=== PATIENT | male | born 1965 | race Caucasian/White ===

== ENCOUNTER → 2019-07-09 07:53 | Outpatient (BNVA) | payer SELFPAY | PROVIDERS: PCP Nurse Practitioner Family; Visit Provider Anesthesiology | DX: G89.29 Other chronic pain (principal); M54.16 Radiculopathy, lumbar region; M54.2 Cervicalgia; M19.90 Unspecified osteoarthritis, unspecified site; Z87.39 Personal history of other diseases of the musculoskeletal system and connective tissue; Z79.891 Long term (current) use of opiate analgesic | CPT/HCPCS: 99214 ==

== ENCOUNTER → 2019-09-12 14:06 | Outpatient (BNVA) | payer SELFPAY | PROVIDERS: PCP Nurse Practitioner Family; Visit Provider Anesthesiology | DX: G89.29 Other chronic pain (principal); M54.16 Radiculopathy, lumbar region; M17.0 Bilateral primary osteoarthritis of knee; M54.2 Cervicalgia; Z87.39 Personal history of other diseases of the musculoskeletal system and connective tissue; Z79.891 Long term (current) use of opiate analgesic | CPT/HCPCS: 99214 ==

== ENCOUNTER → 2019-10-29 09:56 | Outpatient (BNVA) | payer SELFPAY | PROVIDERS: PCP Nurse Practitioner Family; Visit Provider Nurse Practitioner | DX: G89.29 Other chronic pain (principal); M54.16 Radiculopathy, lumbar region; M54.9 Dorsalgia, unspecified; M54.2 Cervicalgia; Z79.891 Long term (current) use of opiate analgesic | CPT/HCPCS: 99213 ==

== ENCOUNTER → 2020-01-14 09:47 | Outpatient (BNVA) | payer SELFPAY | PROVIDERS: Absent Provider Anesthesiology; PCP Nurse Practitioner Family; Visit Provider Anesthesiology | DX: G89.29 Other chronic pain (principal); M54.42 Lumbago with sciatica, left side; M54.16 Radiculopathy, lumbar region; M54.9 Dorsalgia, unspecified; M17.0 Bilateral primary osteoarthritis of knee; M54.2 Cervicalgia; Z87.39 Personal history of other diseases of the musculoskeletal system and connective tissue; Z79.891 Long term (current) use of opiate analgesic | CPT/HCPCS: 99214 ==

== ENCOUNTER → 2020-03-17 12:56 | Outpatient (BNVA) | payer SELFPAY | PROVIDERS: PCP Nurse Practitioner Family; Visit Provider Nurse Practitioner | DX: G89.29 Other chronic pain (principal); M54.42 Lumbago with sciatica, left side; M54.16 Radiculopathy, lumbar region; M54.2 Cervicalgia; M54.9 Dorsalgia, unspecified; M19.90 Unspecified osteoarthritis, unspecified site; Z79.891 Long term (current) use of opiate analgesic | CPT/HCPCS: 99213 ==

== ENCOUNTER → 2020-05-12 13:58 | Outpatient (BNVA) | payer SELFPAY | PROVIDERS: PCP Nurse Practitioner Family; Visit Provider Anesthesiology | DX: G89.29 Other chronic pain (principal); M54.16 Radiculopathy, lumbar region; M17.0 Bilateral primary osteoarthritis of knee; M54.2 Cervicalgia; M54.9 Dorsalgia, unspecified; Z87.39 Personal history of other diseases of the musculoskeletal system and connective tissue; Z79.891 Long term (current) use of opiate analgesic | CPT/HCPCS: 99214 ==

== ENCOUNTER → 2020-07-17 13:07 | Outpatient (BNVA) | payer SELFPAY | PROVIDERS: PCP Nurse Practitioner Family; Visit Provider Anesthesiology | DX: G89.29 Other chronic pain (principal); M25.561 Pain in right knee; M54.16 Radiculopathy, lumbar region; M54.2 Cervicalgia; M54.9 Dorsalgia, unspecified; M17.0 Bilateral primary osteoarthritis of knee; Z87.39 Personal history of other diseases of the musculoskeletal system and connective tissue; Z79.891 Long term (current) use of opiate analgesic | CPT/HCPCS: 99214 ==

== ENCOUNTER → 2020-09-15 08:22 | Outpatient (BNVA) | payer SELFPAY | PROVIDERS: PCP Nurse Practitioner Family; Visit Provider Anesthesiology | DX: G89.29 Other chronic pain (principal); M54.2 Cervicalgia; M54.9 Dorsalgia, unspecified; M54.16 Radiculopathy, lumbar region; M17.0 Bilateral primary osteoarthritis of knee; M19.90 Unspecified osteoarthritis, unspecified site; Z87.39 Personal history of other diseases of the musculoskeletal system and connective tissue; Z79.891 Long term (current) use of opiate analgesic | CPT/HCPCS: 99214 ==

== ENCOUNTER → 2020-11-10 13:44 | Outpatient (BNVA) | payer SELFPAY | PROVIDERS: PCP Nurse Practitioner Family; Visit Provider Nurse Practitioner | DX: G89.29 Other chronic pain (principal); M54.16 Radiculopathy, lumbar region; M54.9 Dorsalgia, unspecified; M54.2 Cervicalgia; M19.90 Unspecified osteoarthritis, unspecified site; M17.0 Bilateral primary osteoarthritis of knee; Z79.891 Long term (current) use of opiate analgesic; Z87.39 Personal history of other diseases of the musculoskeletal system and connective tissue | CPT/HCPCS: 99212; 99213 ==

== ENCOUNTER → 2021-01-20 12:42 | Outpatient (BNVA) | payer SELFPAY | PROVIDERS: PCP Nurse Practitioner Family; Visit Provider Anesthesiology | DX: G89.29 Other chronic pain (principal); M54.2 Cervicalgia; M54.42 Lumbago with sciatica, left side; M54.16 Radiculopathy, lumbar region; Z87.39 Personal history of other diseases of the musculoskeletal system and connective tissue; Z79.891 Long term (current) use of opiate analgesic | CPT/HCPCS: 99214 ==

== ENCOUNTER → 2021-03-17 13:13 | Outpatient (BNVA) | payer SELFPAY | PROVIDERS: PCP Nurse Practitioner Family; Visit Provider Anesthesiology | DX: G89.29 Other chronic pain (principal); M54.16 Radiculopathy, lumbar region; M54.2 Cervicalgia; Z87.39 Personal history of other diseases of the musculoskeletal system and connective tissue; Z79.891 Long term (current) use of opiate analgesic | CPT/HCPCS: 99214 ==

== ENCOUNTER → 2021-05-13 13:44 | Outpatient (BNVA) | payer SELFPAY | PROVIDERS: PCP Nurse Practitioner Family; Visit Provider Anesthesiology | DX: G89.29 Other chronic pain (principal); M54.2 Cervicalgia; M54.9 Dorsalgia, unspecified; M54.16 Radiculopathy, lumbar region; M19.90 Unspecified osteoarthritis, unspecified site; Z87.39 Personal history of other diseases of the musculoskeletal system and connective tissue; Z79.891 Long term (current) use of opiate analgesic; Z87.891 Personal history of nicotine dependence; R03.0 Elevated blood-pressure reading, without diagnosis of hypertension | CPT/HCPCS: 99214 ==

== ENCOUNTER → 2021-07-19 16:59 | Outpatient (BNVA) | payer SELFPAY | PROVIDERS: PCP Nurse Practitioner Family; Visit Provider Nurse Practitioner Family | DX: I10 Essential (primary) hypertension (principal); E78.2 Mixed hyperlipidemia; R07.9 Chest pain, unspecified; Z79.899 Other long term (current) drug therapy; Z12.5 Encounter for screening for malignant neoplasm of prostate; E55.9 Vitamin D deficiency, unspecified; M54.2 Cervicalgia; G89.29 Other chronic pain; M54.16 Radiculopathy, lumbar region; M54.9 Dorsalgia, unspecified | CPT/HCPCS: 80053; 80061; 81003; 82306; 83036; 84443; 85025; G0103 ==

== ENCOUNTER → 2022-11-02 15:40 | Outpatient (BNVA) | payer OTHER, SELFPAY | PROVIDERS: PCP Family Medicine; Visit Provider Family Medicine | DX: M17.12 Unilateral primary osteoarthritis, left knee (principal); M79.673 Pain in unspecified foot; M72.2 Plantar fascial fibromatosis; M25.562 Pain in left knee; I10 Essential (primary) hypertension | CPT/HCPCS: 73562 ==

== ENCOUNTER 2022-11-14 06:31 | Outpatient (CLI) | payer OTHER, SELFPAY ==
--- NOTE | 2022-11-14 07:00 | CT_ITS ---
WS: [id number] CT LEFT KNEE, NONCONTRAST. HISTORY: M25.562 - Pain in left knee Technique: All CT scans at [facility] use at least one of these dose optimization techniques: automated exposure control; mA and/or kV adjustment per patient size (includes targeted exams where dose is matched to clinical indication); or iterative reconstruction. DLP: 346.04 mGy.cm COMPARISON: Radiograph 11/02/2022 No acute fractures or dislocations. Tricompartment mild to moderate osteoarthritis most significant i n the medial compartment. Marginal osteophytes from the tibial plateau and femoral condyles. Increase d sclerotic changes involving the medial femoral condyle and tibial plateau. Subchondral cyst in the tibial plateau measures 2.6 x 2.8 cm. No acute fractures. Moderate suprapatellar effusion. CT/CT knee LT wo con* [id number] IMPRESSION: 1. No acute LEFT knee fracture. 2. Moderate suprapatellar effusion. 3. Mild to moderate tricompartment osteoarthritis, most significant in the med ial compartment.
== END 2022-11-14 06:32 | disposition home or self-care (01) ==
LOC: RAD 06:35
PROVIDERS: PCP Family Medicine; Visit Provider Family Medicine
DX: M17.12 Unilateral primary osteoarthritis, left knee (principal); M25.562 Pain in left knee; M25.462 Effusion, left knee
CPT/HCPCS: 73562; 73700

== ENCOUNTER → 2022-11-16 13:49 | Outpatient (BNVA) | payer OTHER, SELFPAY | PROVIDERS: PCP Family Medicine; Visit Provider Nurse Practitioner | DX: M79.673 Pain in unspecified foot (principal) | CPT/HCPCS: 73630 ==

== ENCOUNTER 2022-12-09 06:00 | Outpatient (CLI) | payer OTHER, SELFPAY | END 2022-12-09 06:01 | LOC: SPT 12-12 12:26 | PROVIDERS: PCP Family Medicine; Visit Provider Student in an Organized Health Care Education/Training Program | DX: Z46.89 Encounter for fitting and adjustment of other specified devices (principal); M17.12 Unilateral primary osteoarthritis, left knee | CPT/HCPCS: 97760; L1851 ==

== ENCOUNTER → 2022-12-09 06:53 | Outpatient (BNVA) | payer OTHER, SELFPAY | PROVIDERS: PCP Family Medicine; Visit Provider Student in an Organized Health Care Education/Training Program | DX: M17.12 Unilateral primary osteoarthritis, left knee | CPT/HCPCS: 73560; 73565 ==

== ENCOUNTER 2023-09-24 22:15 | Emergency (ER) | payer OTHER, SELFPAY ==
[2023-09-24 22:25] VITALS: BP 161/79; PULSE 68; RESP 18; TEMP 37.4; O2SAT 99; BMI 32.8
[2023-09-24 23:09] VITALS: BP 165/103; PULSE 69; RESP 22; O2SAT 94
--- NOTE | 2023-09-24 23:30 | W.ED.EXTPRO ---
HPI - Extremity Problem General: Chief complaint: Extremity Injury, Lower Stated complaint: Hip Pain Time Seen by Provider: 09/24/23 23:00 History of Present Illness: 58-year-old male patient comes in today with right hip pain. Patient has had increased pain and discomfort after doing some work at the [employer]. Patient appears nontoxic. Patient appears in mild to moderate pain. Patient is on chronic pain medication for back and knee pain. 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 Social History Smoking and tobacco/nicotine status: former use of tobacco/nicotine Second hand smoke exposure: No Alcohol intake: never Substance/Drug Use: never Physical Exam Const: COMMON NORMALS: alert HENMT: COMMON NORMALS: normocephalic HEAD & SCALP: normocephalic Neck/C-Spine: GENERAL: Yes normal visual inspection Resp: COMMON NORMALS: normal respiratory effort Cardio: COMMON NORMALS: regular rate RATE: regular rate : COMMON NORMALS: Yes no CVA tenderness BLADDER/KIDNEY EXAM: Yes no CVA tenderness Back/Pelvis: COMMON NORMALS: no CVA tenderness and thoracic and lumbar spine normal to inspection Extremity: RIGHT LOWER EXTREMITY: Yes hip joint (Lateral hip joint pain) Neuro: SENSORIUM/ORIENTATION: Yes alert Skin: COMMON NORMALS: turgor normal GENERAL SKIN EXAM: turgor normal Course Vital Signs: Vital signs: Vital Signs Temperature 99.3 F 09/24/23 22:25 Pulse Rate 72 09/25/23 00:00 Respiratory Rate 20 H 09/25/23 00:00 Blood Pressure 162/93 09/25/23 00:00 Pulse Oximetry 94 09/25/23 00:00 Oxygen Delivery Me thod Room Air 09/24/23 22:25 MDM - Extremity (Nontraumatic) Medical Decision Making 58-year-old male patient comes in with lateral right hip pain. On exam patient has tenderness to palpation of the lateral hip. Patient denies any pain to the inguinal hip. Differential diagnosis includes but not limited to piriformis syndrome, bursitis, arthritis, muscle strain. X-ray of the hip noted some calcium buildup along the gluteal tendon. Also likely was suggestive of chronic tendinitis. Patient probably has a flare of his chronic tendinitis. Discussed recommendations for follow-up with orthopedics for further evaluation and treatment. Will place patient on prednisone 40 mg daily to help with pain and inflammation. Patient has not a good candidate for NSAIDs due to prior cardiac disease. Patient can use his routine medicine as needed for the control of his pain. Lab Data Radiology Impressions Hip/Pelvis X-Ray 09/24/23 23:32 IMPRESSION: No acute fracture or dislocation. Coarse calcifications at the greater trochanter suggestive of underlying gluteal tendinopathy. All radiology interpretation(s) finalized by discharge Discharge Plan Discharge Patient Disposition: Home Clinical Impression: Tendonitis of right hip Condition: Stable Prescriptions: New prednisone 20 mg tablet 20 mg PO BID 7 Days Qty: 14 0RF No Action nitroglycerin 0.4 mg tablet, sublingual 0.4 mg SUBLINGUAL Q5M PRN (Reason: chest pain) Qty: 30 5RF aspirin 81 mg tablet,delayed release (DR/EC) 81 mg PO ONCE morphine [MS Contin] 15 mg tablet extended release 15 mg PO Q8H 30 Days Qty: 90 0RF Rx Instructions: Fill on or after 07/20/21 morphine 15 mg tablet extended release 15 mg PO Q8H 30 Days Qty: 90 0RF Rx Instructions: fill on or after 08/19/21 hydrocodone-acetaminophen 10-325 mg tablet 1 tab PO .q4hrs PRN (Reason: pain) 30 Days Qty: 180 0RF Rx Instructions: must be seen for further refills albuterol sulfate 90 mcg/actuation HFA aerosol inhaler 1 inh inhalation QID PRN (Reason: shortness of breath or wheezing) Qty: 8.5 0RF (DME) medial special service representative brace See Rx Instructions .Route .MEDSUPPLY Qty: 1 0RF Rx Instructions: As directed Durolane 60 mg/3 mL syringe 60 mg intra-articular ONCE Qty: 3 0RF Coricidin HBP Cold and Flu 2-325 mg tablet 1 tab PO Q6H PRN (Reason: cold symptoms) Qty: 60 1RF amlodipine 10 mg tablet 10 mg PO DAILY Qty: 90 1RF telmisartan [Micardis] 40 mg tablet 40 mg PO DAILY Qty: 90 1RF clonidine HCl 0.1 mg tablet See Rx Instructions .ROUTE .COMPLEX Qty: 60 0RF Dose Instruction: TAKE 1 TABLET TWICE DAILY NEEDED FOR HYPERTENSIVE EMERGENCY. FOR SYSTOLIC BLOOD PRESSURE>180 OR DIASTOLIC BLOOD PRESSURE>100. HOLD IF HR<60. Rx Instructions: TAKE 1 TABLET TWICE DAILY NEEDED FOR HYPERTENSIVE EMERGENCY. FOR SYSTOLIC BLOOD PRESSURE>180 OR DIASTOLIC BLOOD PRESSURE>100. HOLD IF HR<60. colchicine 0.6 mg tablet See Rx Instructions .ROUTE .COMPLEX Qty: 14 0RF Dose Instruction: TAKE 1 TABLET BY MOUTH DAILY FOR 14 DAYS Rx Instructions: TAKE 1 TABLET BY MOUTH DAILY FOR 14 DAYS betamethasone valerate 0.1 % cream 1 applic TOPICAL BID PRN (Reason: itching) Qty: 45 1RF Discharge Orders: Discharge ED (Routine); Ordered 09/25/23 Ordered By: Mick Baron Discharge Diet: Usual diet Discharge Activity: Increase activity as tolerated Patient Instructions: Tendinitis (ED) Activity Restrictions/Additional Instructions: Activity as tolerated. Use ice or heat to the area for pain. Follow-up with primary care in 1 week for recheck. Follow-up with news specialist for further treatment. Return to ED for new concerns. Coding Level of Care Code ED Sheet [employer] Du[employer] Installer Helper for Chris Ryan
--- NOTE | 2023-09-24 23:32 | XRR_ITS ---
PROCEDURE INFORMATION: Exam: XR Right Hip Exam date and time: 09/24/2023 11:36 PM Age: 58 years old Clinical indication: Right hip; Patient HX: C/O worsening hip pain over last three days. No injury. TECHNIQUE: Imaging protocol: Radiologic exam of the right hip. Views: 1 view hip with pelvis when performed. COMPARISON: No relevant prior studies available. FINDINGS: Bones/joints: No fracture or dislocation. Slight degenerative spurring of the acetabular margin. Clustered coarse calcification of the 1.4 cm of the location of the gluteus minimus footprint. Additional subcentimeter calcification in the greater trochanter laterally. Soft tissues: Unremarkable. XR/XR hip RT 2-3V wo/w pel* [id number] IMPRESSION: No acute fracture or dislocation. Coarse calcifications at the greater trochanter suggestive of underlying gluteal tendinopathy.
[2023-09-24] MEDS: orphenadrine 30 mg/mL Inj 2 mL 60 MG IM (23:35)
[2023-09-24] MEDS: dexamethasone 10 mg/mL INJ IM (23:35)
[2023-09-24 23:42] VITALS: BP 152/68; PULSE 65; RESP 16; O2SAT 95
[2023-09-25] VITALS: BP 162/93; PULSE 72; RESP 20; O2SAT 94
[2023-09-25 00:46] VITALS: BP 150/92; PULSE 65; RESP 14; O2SAT 97
--- NOTE | 2023-09-27 10:20 | PC.SOCIAL ---
Ortho Referral Referral to clinic at this time. Clinic to contact patient with appt date/time.
== END 2023-09-25 00:40 | disposition home or self-care (01) ==
PROVIDERS: Emergency Provider Nurse Practitioner Family
DX: M76.9 Unspecified enthesopathy, lower limb, excluding foot (principal); I10 Essential (primary) hypertension; E78.2 Mixed hyperlipidemia; Z87.891 Personal history of nicotine dependence
CPT/HCPCS: 73502; 96372; 99284; J1100; J2360

== ENCOUNTER → 2023-11-07 13:49 | Outpatient (BNVA) | payer OTHER, SELFPAY | PROVIDERS: Visit Provider Student in an Organized Health Care Education/Training Program | DX: M70.61 Trochanteric bursitis, right hip | CPT/HCPCS: 73522 ==

== ENCOUNTER 2023-11-13 05:38 | Emergency (ER) | payer SELFPAY ==
--- NOTE | 2023-11-13 05:50 | XRR_ITS ---
PROCEDURE INFORMATION: Exam: XR Right Hip Exam date and time: 11/13/2023 6:02 AM Age: 58 years old Clinical indication: Right hip; Patient HX: C/O RT hip pain. No injury. TECHNIQUE: Imaging protocol: Radiologic exam of the right hip. Views: 1 view hip with pelvis when performed. COMPARISON: CR XR hip BI 3-4V wo/w pel [id number] 11/07/2023 2:09 PM FINDINGS: Bones/joints: No fracture or dislocation. Mild articular surface narrowing and spurring.. No acute fracture. Soft tissues: Unremarkable. XR/XR hip RT 2-3V wo/w pel* [id number] IMPRESSION: No acute findings.
[2023-11-13 05:52] VITALS: BP 134/60; PULSE 69; RESP 16; TEMP 36.9; O2SAT 98; BMI 34.4
[2023-11-13] MEDS: dexamethasone 10 mg/mL INJ IM (06:29)
[2023-11-13] MEDS: ketorolac 30 mg/mL INJ 60 MG IM (06:29)
--- NOTE | 2023-11-13 06:29 | ED_ITS ---
HPI - Back Pain/Injury General: Chief Complaint: Back Pain/Injury Stated Complaint: right hip pain Time Seen by Provider: 11/13/23 05:48 History of Present Illness: Associated symptoms: Deny abdominal pain, chills, dysuria, fever(s) or urinary urgency Review of Systems Const: Denies: fever(s) or chills Card: Denies: chest pain Resp: Denies: dyspnea GI: Denies: abdominal pain : Denies: dysuria, urinary frequency or urinary urgency Musc: Denies: neck pain or back pain Skin/Breast: Denies: rash PFSH ED PFSH: Medical History Medication management Anemia Prostate cancer screening Vitamin D deficiency Chest pain Mixed hyperlipidemia Essential hypertension History of degenerative disc disease Osteoarthritis Chronic radicular lumbar pain Encounter for long-term use of opiate analgesic Arthritis of both knees Chronic neck pain Spine pain Surgical History 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 H/O heart artery stent 4x at [facility] [place] 2017 and 2008 Social History Smoking and tobacco/nicotine status: former use of tobacco/nicotine Second hand smoke exposure: No Alcohol intake: never Substance/Drug Use: never Physical Exam Const: COMMON NORMALS: no acute distress GENERAL APPEARANCE: cooperative and comfortable ORIENTATION/CONSCIOUSNESS: Yes awake, Yes oriented to person, Yes oriented to place and Yes oriented to time HENMT: COMMON NORMALS: normocephalic, atraumatic and hearing grossly normal bilaterally HEAD & SCALP: normocephalic and atraumatic Resp: COMMON NORMALS: normal respiratory effort, No retractions, No use of accessory muscles and clear to auscultation bilaterally AUSCULTATION: clear to auscultation bilaterally Cardio: COMMON NORMALS: regular rate, regular rhythm and No murmurs present (Cardio) RATE: regular rate RHYTHM: regular rhythm GI: COMMON NORMALS: Soft to palpation and No hepatosplenomegaly present AUSCULTATION: Yes normoactive bowel sounds PALPATION: Yes Soft to palpation, No Tenderness to palpation present (GI), No Guarding due to palpation present (GI) and Yes No hepatosplenomegaly present Extremity: COMMON NORMALS: normal to inspection, capillary refill normal, no clubbing, cyanosis or edema, no calf tenderness and no pedal edema Neuro: SENSORIUM/ORIENTATION: Yes oriented to person, Yes oriented to place and Yes oriented to time Skin: COMMON NORMALS: no rashes or lesions noted GENERAL SKIN EXAM: no rashes or lesions noted Course Vital Signs: Vital signs: Vital Signs Temperature 98.4 F 11/13/23 05:52 Pulse Rate 69 11/13/23 05:52 Respiratory Rate 16 11/13/23 05:52 Blood Pressure 134/60 11/13/23 05:52 Pulse Oximetry 98 11/13/23 05:52 Oxygen Delivery Me thod Room Air 11/13/23 05:52 MDM - Back Pain/Injury Labs Radiology Impressions Hip/Pelvis X-Ray 11/13/23 05:50 IMPRESSION: No acute findings. Discharge Plan Discharge Condition: Stable Prescriptions: No Action nitroglycerin 0.4 mg tablet, sublingual 0.4 mg SUBLINGUAL Q5M PRN (Reason: chest pain) Qty: 30 5RF aspirin 81 mg tablet,delayed release (DR/EC) 81 mg PO ONCE morphine [MS Contin] 15 mg tablet extended release 15 mg PO Q8H 30 Days Qty: 90 0RF Rx Instructions: Fill on or after 07/20/21 morphine 15 mg tablet extended release 15 mg PO Q8H 30 Days Qty: 90 0RF Rx Instructions: fill on or after 08/19/21 hydrocodone-acetaminophen 10-325 mg tablet 1 tab PO .q4hrs PRN (Reason: pain) 30 Days Qty: 180 0RF Rx Instructions: must be seen for further refills albuterol sulfate 90 mcg/actuation HFA aerosol inhaler 1 inh inhalation QID PRN (Reason: shortness of breath or wheezing) Qty: 8.5 0RF (DME) medial central office frame wirer brace See Rx Instructions .Route .MEDSUPPLY Qty: 1 0RF Rx Instructions: As directed Durolane 60 mg/3 mL syringe 60 mg intra-articular ONCE Qty: 3 0RF Coricidin HBP Cold and Flu 2-325 mg tablet 1 tab PO Q6H PRN (Reason: cold symptoms) Qty: 60 1RF amlodipine 10 mg tablet 10 mg PO DAILY Qty: 90 1RF telmisartan [Micardis] 40 mg tablet 40 mg PO DAILY Qty: 90 1RF clonidine HCl 0.1 mg tablet See Rx Instructions .ROUTE .COMPLEX Qty: 60 0RF Dose Instruction: TAKE 1 TABLET TWICE DAILY NEEDED FOR HYPERTENSIVE EMERGENCY. FOR SYSTOLIC BLOOD PRESSURE>180 OR DIASTOLIC BLOOD PRESSURE>100. HOLD IF HR<60. Rx Instructions: TAKE 1 TABLET TWICE DAILY NEEDED FOR HYPERTENSIVE EMERGENCY. FOR SYSTOLIC BLOOD PRESSURE>180 OR DIASTOLIC BLOOD PRESSURE>100. HOLD IF HR<60. colchicine 0.6 mg tablet See Rx Instructions .ROUTE .COMPLEX Qty: 14 0RF Dose Instruction: TAKE 1 TABLET BY MOUTH DAILY FOR 14 DAYS Rx Instructions: TAKE 1 TABLET BY MOUTH DAILY FOR 14 DAYS betamethasone valerate 0.1 % cream 1 applic TOPICAL BID PRN (Reason: itching) Qty: 45 1RF Coding Level of Care Code ED Corporation Pilot for Chris Ryan
--- NOTE | 2023-11-13 06:35 | ED_ITS ---
HPI - Back Pain/Injury General: Chief Complaint: Back Pain/Injury Stated Complaint: right hip pain Time Seen by Provider: 11/13/23 05:48 History of Present Illness: Associated symptoms: Deny abdominal pain, chills, dysuria, fever(s) or urinary urgency Review of Systems Const: Denies: fever(s) or chills Card: Denies: chest pain Resp: Denies: dyspnea GI: Denies: abdominal pain : Denies: dysuria, urinary frequency or urinary urgency Musc: Denies: neck pain or back pain Skin/Breast: Denies: rash PFSH ED PFSH: Medical History Medication management Anemia Prostate cancer screening Vitamin D deficiency Chest pain Mixed hyperlipidemia Essential hypertension History of degenerative disc disease Osteoarthritis Chronic radicular lumbar pain Encounter for long-term use of opiate analgesic Arthritis of both knees Chronic neck pain Spine pain Surgical History 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 H/O heart artery stent 4x at [facility] [place] 2017 and 2008 Social History Smoking and tobacco/nicotine status: former use of tobacco/nicotine Second hand smoke exposure: No Alcohol intake: never Substance/Drug Use: never Physical Exam Const: COMMON NORMALS: no acute distress GENERAL APPEARANCE: cooperative and comfortable ORIENTATION/CONSCIOUSNESS: Yes awake, Yes oriented to person, Yes oriented to place and Yes oriented to time HENMT: COMMON NORMALS: normocephalic, atraumatic and hearing grossly normal bilaterally HEAD & SCALP: normocephalic and atraumatic Resp: COMMON NORMALS: normal respiratory effort, No retractions, No use of accessory muscles and clear to auscultation bilaterally AUSCULTATION: clear to auscultation bilaterally Cardio: COMMON NORMALS: regular rate, regular rhythm and No murmurs present (Cardio) RATE: regular rate RHYTHM: regular rhythm GI: COMMON NORMALS: Soft to palpation and No hepatosplenomegaly present AUSCULTATION: Yes normoactive bowel sounds PALPATION: Yes Soft to palpation, No Tenderness to palpation present (GI), No Guarding due to palpation present (GI) and Yes No hepatosplenomegaly present Extremity: COMMON NORMALS: normal to inspection, capillary refill normal, no clubbing, cyanosis or edema, no calf tenderness and no pedal edema Neuro: SENSORIUM/ORIENTATION: Yes oriented to person, Yes oriented to place and Yes oriented to time Skin: COMMON NORMALS: no rashes or lesions noted GENERAL SKIN EXAM: no rashes or lesions noted Course Vital Signs: Vital signs: Vital Signs Temperature 98.4 F 11/13/23 05:52 Pulse Rate 69 11/13/23 05:52 Respiratory Rate 16 11/13/23 05:52 Blood Pressure 134/60 11/13/23 05:52 Pulse Oximetry 98 11/13/23 05:52 Oxygen Delivery Me thod Room Air 11/13/23 05:52 MDM - Back Pain/Injury Labs Radiology Impressions Hip/Pelvis X-Ray 11/13/23 05:50 IMPRESSION: No acute findings. Discharge Plan Discharge Condition: Stable Prescriptions: No Action nitroglycerin 0.4 mg tablet, sublingual 0.4 mg SUBLINGUAL Q5M PRN (Reason: chest pain) Qty: 30 5RF aspirin 81 mg tablet,delayed release (DR/EC) 81 mg PO ONCE morphine [MS Contin] 15 mg tablet extended release 15 mg PO Q8H 30 Days Qty: 90 0RF Rx Instructions: Fill on or after 07/20/21 morphine 15 mg tablet extended release 15 mg PO Q8H 30 Days Qty: 90 0RF Rx Instructions: fill on or after 08/19/21 hydrocodone-acetaminophen 10-325 mg tablet 1 tab PO .q4hrs PRN (Reason: pain) 30 Days Qty: 180 0RF Rx Instructions: must be seen for further refills albuterol sulfate 90 mcg/actuation HFA aerosol inhaler 1 inh inhalation QID PRN (Reason: shortness of breath or wheezing) Qty: 8.5 0RF (DME) medial instrumentation and controls designer brace See Rx Instructions .Route .MEDSUPPLY Qty: 1 0RF Rx Instructions: As directed Durolane 60 mg/3 mL syringe 60 mg intra-articular ONCE Qty: 3 0RF Coricidin HBP Cold and Flu 2-325 mg tablet 1 tab PO Q6H PRN (Reason: cold symptoms) Qty: 60 1RF amlodipine 10 mg tablet 10 mg PO DAILY Qty: 90 1RF telmisartan [Micardis] 40 mg tablet 40 mg PO DAILY Qty: 90 1RF clonidine HCl 0.1 mg tablet See Rx Instructions .ROUTE .COMPLEX Qty: 60 0RF Dose Instruction: TAKE 1 TABLET TWICE DAILY NEEDED FOR HYPERTENSIVE EMERGENCY. FOR SYSTOLIC BLOOD PRESSURE>180 OR DIASTOLIC BLOOD PRESSURE>100. HOLD IF HR<60. Rx Instructions: TAKE 1 TABLET TWICE DAILY NEEDED FOR HYPERTENSIVE EMERGENCY. FOR SYSTOLIC BLOOD PRESSURE>180 OR DIASTOLIC BLOOD PRESSURE>100. HOLD IF HR<60. colchicine 0.6 mg tablet See Rx Instructions .ROUTE .COMPLEX Qty: 14 0RF Dose Instruction: TAKE 1 TABLET BY MOUTH DAILY FOR 14 DAYS Rx Instructions: TAKE 1 TABLET BY MOUTH DAILY FOR 14 DAYS betamethasone valerate 0.1 % cream 1 applic TOPICAL BID PRN (Reason: itching) Qty: 45 1RF Coding Level of Care Code ED Crown Pouncer for Chris Ryan
--- NOTE | 2023-11-13 06:37 | W.ED.GENADLT ---
HPI - General Adult General: Chief complaint: Back Pain/Injury Stated complaint: right hip pain Time Seen by Provider: 11/13/23 05:48 Source: patient Mode of arrival: ambulatory History of Present Illness: 58-year-old male presents to the emergency room complaining of right hip pain. He is relates that the hip pain is been evaluated by orthopedics it is felt to be secondary to compensating for his knee. Reading the orthopedic notes he has had injections in the right knee. In December 2022 Dr. Avery did see him advised him he could have injections every 6 months he has not had a recurrent one since then. He has been on some oral steroids per his report. 3 days ago patient was getting in and out of machinery for most of the day thinks that may have exacerbated it. He has no pain radiating down the right leg. No saddle paresthesias no urinary retention or fecal incontinence Onset (ago): day(s) Location: lower extremity (Right hip) Severity: moderate Quality: sharp Pain Consistency: constant Relieving factors: rest Exacerbating factors: movement Associated symptoms: Deny chest pain, confusion, cough, diaphoresis, decreased appetite, dyspnea, fevers/chills, headache(s), malaise, nausea, rash, palpitations, seizures, short of breath, syncope, vomiting or weakness Review of Systems Const: Denies: malaise or diaphoresis Card: Denies: chest pain, palpitations or syncope Resp: Denies: dyspnea GI: Denies: nausea or vomiting : Denies: dysuria, urinary frequency or urinary urgency Musc: Denies: neck pain or back pain Skin/Breast: Denies: rash Neuro: Denies: headache(s) or confusion PFSH ED PFSH: Medical History Medication management Anemia Prostate cancer screening Vitamin D deficiency Chest pain Mixed hyperlipidemia Essential hypertension History of degenerative disc disease Osteoarthritis Chronic radicular lumbar pain Encounter for long-term use of opiate analgesic Arthritis of both knees Chronic neck pain Spine pain Surgical History 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 H/O heart artery stent 4x at [facility] [place] 2017 and 2008 Social History Smoking and tobacco/nicotine status: former use of tobacco/nicotine Second hand smoke exposure: No Alcohol intake: never Substance/Drug Use: never Physical Exam Const: GENERAL APPEARANCE: cooperative and comfortable ORIENTATION/CONSCIOUSNESS: Yes awake, Yes oriented to person, Yes oriented to place and Yes oriented to time HENMT: COMMON NORMALS: normocephalic, atraumatic and hearing grossly normal bilaterally HEAD & SCALP: normocephalic and atraumatic Resp: COMMON NORMALS: normal respiratory effort, No retractions, No use of accessory muscles and clear to auscultation bilaterally AUSCULTATION: clear to auscultation bilaterally Cardio: COMMON NORMALS: regular rate, regular rhythm and No murmurs present (Cardio) RATE: regular rate RHYTHM: regular rhythm GI: COMMON NORMALS: Soft to palpation and No hepatosplenomegaly present AUSCULTATION: Yes normoactive bowel sounds PALPATION: Yes Soft to palpation, No Tenderness to palpation present (GI), No Guarding due to palpation present (GI) and Yes No hepatosplenomegaly present Extremity: COMMON NORMALS: normal to inspection, capillary refill normal, no clubbing, cyanosis or edema, no calf tenderness and no pedal edema NARRATIVE EXTREMITY EXAM: Pain in the right hip with internal/external rotation straight leg raising causes pain in the hip joint itself but no pain radiating to the foot. Deep tendon reflexes +1/4 at the patellar tendon on the right. Right lower leg neurovascular intact. Neuro: SENSORIUM/ORIENTATION: Yes oriented to person, Yes oriented to place and Yes oriented to time Skin: COMMON NORMALS: no rashes or lesions noted GENERAL SKIN EXAM: no rashes or lesions noted Course Vital Signs: Vital signs: Vital Signs Temperature 98.4 F 11/13/23 05:52 Pulse Rate 69 11/13/23 05:52 Respiratory Rate 16 11/13/23 05:52 Blood Pressure 134/60 11/13/23 05:52 Pulse Oximetry 98 11/13/23 05:52 Oxygen Delivery Me thod Room Air 11/13/23 05:52 MDM - General Adult Medical Decision Making Right hip pain no acute findings on EKG. Encourage patient to follow-up with Dr. Avery he seen him in the past by it had recommended steroid or repeat Durolane injections. He said he had real trouble with the first Durolane injection. He did see Dr. Avery last week. This was before the flareup that he had that brought him in today. Will discharge him home on a steroid taper encouraged him to follow-up with Dr. Avery as soon as he is able. Medical Records I reviewed the patient's medical records. Lab Data I reviewed the patient's lab results. Radiology Impressions Hip/Pelvis X-Ray 11/13/23 05:50 IMPRESSION: No acute findings. All radiology interpretation(s) finalized by discharge Discharge Plan Discharge Patient Disposition: Home Clinical Impression: Osteoarthritis of right hip Condition: Stable Prescriptions: New prednisone 20 mg tablet 20 mg PO TID Qty: 15 0RF Rx Instructions: 1 p.o. 3 times daily x3 days, 1 p.o. twice daily x2 days, 1 p.o. daily x2 days No Action nitroglycerin 0.4 mg tablet, sublingual 0.4 mg SUBLINGUAL Q5M PRN (Reason: chest pain) Qty: 30 5RF aspirin 81 mg tablet,delayed release (DR/EC) 81 mg PO ONCE morphine [MS Contin] 15 mg tablet extended release 15 mg PO Q8H 30 Days Qty: 90 0RF Rx Instructions: Fill on or after 07/20/21 morphine 15 mg tablet extended release 15 mg PO Q8H 30 Days Qty: 90 0RF Rx Instructions: fill on or after 08/19/21 hydrocodone-acetaminophen 10-325 mg tablet 1 tab PO .q4hrs PRN (Reason: pain) 30 Days Qty: 180 0RF Rx Instructions: must be seen for further refills albuterol sulfate 90 mcg/actuation HFA aerosol inhaler 1 inh inhalation QID PRN (Reason: shortness of breath or wheezing) Qty: 8.5 0RF (DME) medial fundraising officer brace See Rx Instructions .Route .MEDSUPPLY Qty: 1 0RF Rx Instructions: As directed Durolane 60 mg/3 mL syringe 60 mg intra-articular ONCE Qty: 3 0RF Coricidin HBP Cold and Flu 2-325 mg tablet 1 tab PO Q6H PRN (Reason: cold symptoms) Qty: 60 1RF amlodipine 10 mg tablet 10 mg PO DAILY Qty: 90 1RF telmisartan [Micardis] 40 mg tablet 40 mg PO DAILY Qty: 90 1RF clonidine HCl 0.1 mg tablet See Rx Instructions .ROUTE .COMPLEX Qty: 60 0RF Dose Instruction: TAKE 1 TABLET TWICE DAILY NEEDED FOR HYPERTENSIVE EMERGENCY. FOR SYSTOLIC BLOOD PRESSURE>180 OR DIASTOLIC BLOOD PRESSURE>100. HOLD IF HR<60. Rx Instructions: TAKE 1 TABLET TWICE DAILY NEEDED FOR HYPERTENSIVE EMERGENCY. FOR SYSTOLIC BLOOD PRESSURE>180 OR DIASTOLIC BLOOD PRESSURE>100. HOLD IF HR<60. colchicine 0.6 mg tablet See Rx Instructions .ROUTE .COMPLEX Qty: 14 0RF Dose Instruction: TAKE 1 TABLET BY MOUTH DAILY FOR 14 DAYS Rx Instructions: TAKE 1 TABLET BY MOUTH DAILY FOR 14 DAYS betamethasone valerate 0.1 % cream 1 applic TOPICAL BID PRN (Reason: itching) Qty: 45 1RF Discharge Orders: Discharge ED (Routine); Ordered 11/13/23 Ordered By: Maicol Rubio Discharge Diet: Usual diet Discharge Activity: Increase activity as tolerated Patient Instructions: Opioid Safety, Pain Management Activity Restrictions/Additional Instructions: Thank you for choosing [facility] for your healthcare needs today. Please realize this is an emergency room and that we are providing you with a medical screening exam and this may not be complete and all inclusive of all the testing and or work up that you may need to determine your ailment or severity of your illness. It is very important that you follow up as instructed or that you return to the Emergency Department should you have concerns or if your condition changes or worsens in any way. You were seen today with complaint of right hip pain. Will discharge you home with a steroid taper which she can begin tomorrow. Continue your other pain medications. Contact Dr. Avery's office for follow-up appointment as soon as you are able. Coding Level of Care Code ED Certified Appliance Service Technician for Chris Ryan
[2023-11-13 07:46] VITALS: BP 142/81; PULSE 76; O2SAT 96
== END 2023-11-13 07:48 | disposition home or self-care (01) ==
PROVIDERS: Emergency Provider Family Medicine
DX: M16.11 Unilateral primary osteoarthritis, right hip (principal); Z87.891 Personal history of nicotine dependence; E78.2 Mixed hyperlipidemia; I10 Essential (primary) hypertension
CPT/HCPCS: 73502; 96372; 99284; J1100; J1885

== ENCOUNTER → 2023-11-23 15:41 | Outpatient (BNVA) | payer SELFPAY | PROVIDERS: Visit Provider Physician Assistant | DX: M70.61 Trochanteric bursitis, right hip | CPT/HCPCS: 73502 ==

== ENCOUNTER → 2024-03-07 15:23 | Outpatient (BNVA) | payer OTHER, SELFPAY | PROVIDERS: PCP Family Medicine; Visit Provider Orthopaedic Surgery | DX: M54.9 Dorsalgia, unspecified (principal); M25.551 Pain in right hip | CPT/HCPCS: 72110; 73502 ==

== ENCOUNTER 2024-04-16 12:39 | Outpatient (CLI) | payer OTHER, SELFPAY ==
--- NOTE | 2024-04-16 13:00 | MR_ITS ---
WS: [id number] MRI LUMBAR SPINE NONCONTRAST HISTORY: Back Pain COMPARISON: None available. TECHNIQUE: Sagittal and axial multisequence imaging is submitted. Increase in the lumbar lordosis and mild curvature. Disc spaces are narrowed and desiccated. Most significant narrowing at L1-2. Small amount of reactive marrow edema in the adjacent endplates of T12 and L1. L1, L2 and L3 retrolis thesis by 4 mm. Conus terminates normally at at L1. There is increased T2 signal in the conus which may be interspers ed between the nerve roots. T11-12: Small RIGHT paracentral disc protrusion with mild narrowing of the RIGHT subarticular recess. T12-L1: Shallow LEFT paracentral disc protrusion. L1-L2: Osteophytic ridging with central disc osteophyte encroaching upon the thecal sac and subarticu lar recesses. Slight retrolisthesis of the L1 vertebral body. Bilateral facet arthritis. Moderate jodie tral and subarticular recess stenosis with mild foraminal stenosis. Fluid in the facet joints with mi ld widening. L2-L3: Diffuse annular disc bulging with ligamentum flavum and facet arthritis. Mild central, bilater al subarticular recess and mild foraminal stenosis. LEFT foraminal disc protrusion. L3-L4: Diffuse annular disc bulging with osteophytic ridging. Facet and ligamentum flavum hypertrophy . Fluid in the RIGHT facet joint. Mild central, bilateral subarticular recess and foraminal stenosis. L4-L5: Diffuse annular disc bulging with moderate ligamentum flavum and facet arthritis. Moderate jodie tral with bilateral subarticular recess and mild foraminal stenosis. L5-S1: No stenosis. MR/MR lumbar spine wo con* [id number] IMPRESSION: 1. Moderate degenerative spondylitic changes throughout the lumbar spine. 2. 4 mm retrolisthesis of L1, L2 and L3. 3. Increased T2 signal in the conus and the proximal nerve roots. May be relat ed to inflammatory changes from the stenosis at L1-2. 4. L1-2: Moderate central and bilateral subarticular recess with mild foramina l stenosis. 5. L2-3: Mild central, subarticular recess and foraminal stenosis with a small LEFT foraminal disc protrusion. 6. L3-4: Mild central, bilateral subarticular recess and foraminal stenosis. 7. L4-5: Moderate central with bilateral subarticular recess and mild foramina l stenosis.
== END 2024-04-16 12:40 | disposition home or self-care (01) ==
LOC: RAD 12:40
PROVIDERS: PCP Family Medicine; Visit Provider Orthopaedic Surgery
DX: M47.896 Other spondylosis, lumbar region (principal); M40.56 Lordosis, unspecified, lumbar region; M51.26 Other intervertebral disc displacement, lumbar region; M25.78 Osteophyte, vertebrae; M99.63 Osseous and subluxation stenosis of intervertebral foramina of lumbar region
CPT/HCPCS: 72148

== ENCOUNTER → 2024-05-14 16:20 | Outpatient (BNVA) | payer OTHER, SELFPAY | PROVIDERS: PCP Family Medicine; Visit Provider Orthopaedic Surgery | DX: M25.512 Pain in left shoulder (principal) | CPT/HCPCS: 73030 ==

== ENCOUNTER → 2024-05-27 16:13 | Outpatient (BNVA) | payer OTHER, SELFPAY | PROVIDERS: PCP Family Medicine; Visit Provider Nurse Practitioner Family | DX: R07.9 Chest pain, unspecified; I10 Essential (primary) hypertension; R73.03 Prediabetes; D64.9 Anemia, unspecified; Z79.899 Other long term (current) drug therapy; E55.9 Vitamin D deficiency, unspecified | CPT/HCPCS: 80053; 80061; 81003; 82306; 83036; 83550; 84443; 85025 ==

== ENCOUNTER → 2024-07-30 14:43 | Outpatient (BNVA) | payer OTHER, SELFPAY | PROVIDERS: PCP Family Medicine; Visit Provider Physician Assistant | DX: M75.21 Bicipital tendinitis, right shoulder (principal); M75.41 Impingement syndrome of right shoulder; M75.31 Calcific tendinitis of right shoulder | CPT/HCPCS: 73030 ==

== ENCOUNTER → 2024-08-07 11:34 | Outpatient (BNVA) | payer OTHER, SELFPAY | PROVIDERS: PCP Family Medicine; Visit Provider Internal Medicine Cardiovascular Disease | DX: R06.09 Other forms of dyspnea (principal) | CPT/HCPCS: 93005 ==

== ENCOUNTER 2024-08-08 13:38 | Emergency (ER) | payer OTHER, SELFPAY ==
[2024-08-08 13:51] VITALS: BP 199/113; PULSE 74; RESP 20; TEMP 36.8; O2SAT 100
--- NOTE | 2024-08-08 13:56 | ECG_ITS ---
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
[2024-08-08 15:02] LABS: Basophils # 0.1 10^3/uL (0.0-0.1); Basophils % 0.4 %; Eosinophils # 0.1 10^3/uL (0.0-0.8); Hematocrit 45.7 % (37-53); Lymphocytes # 2.9 10^3/uL (0.8-4.8); Lymphocytes % 21.3 %; Mean Corpuscular HGB Conc 34.1 g/dL (30-55); Mean Corpuscular Hemoglobin 27.8 pg (27-33); Mean Corpuscular Volume 81.3 fl (82-101); Mean Platelet Volume 8.4 fL (7.4-10.4); Monocytes # 1.1 10^3/uL (0.2-0.9); Monocytes % 7.8 %; Neutrophils # 9.43 10^3/uL (1.8-7.7); Nucleated Red Blood Cells % 0 %; Platelet Count 247 10^3/cmm (157-399); Red Blood Count 5.62 10^6/uL (3.85-5.65); Red Cell Distribution Width 12.6 % (12.1-15.1); White Blood Count 13.66 10^3/uL (3.29-11.43)
[2024-08-08 15:26] LABS: Alanine Aminotransferase 32 U/L (0-41); Albumin Level 4.4 g/dL (3.5-5.2); Alkaline Phosphatase 60 U/L (40-130); Anion Gap 17.7 (5-19); Aspartate Amino Transferase 22 U/L (0-40); Blood Urea Nitrogen 26 mg/dL (8-23); Calcium 9.5 mg/dL (8.5-10.5); Carbon Dioxide 24 mmol/L (22-29); Chloride 96 mmol/L (98-107); Creatinine Clr Calc Pharmacy 145.3474; Globulin 3.1 g/dL (1.3-4.6); Glomerular Filtration Rate 137.4 mL/min (90-130); Glucose 108 mg/dL (65-115); Osmolality Calculated 281 mOsm/kg (285-295); Potassium 4.7 mmol/L (3.5-5.1); Sodium 133 mmol/L (136-145); Total Bilirubin 0.3 mg/dL (0.15-1.2); Total Protein 7.5 g/dL (6.6-8.7)
[2024-08-08 15:29] LABS: Troponin(5th) Baseline 11 ng/L (0-15)
[2024-08-08 17:19] LABS: Troponin 5 2HR 9.21 ng/L (0-15); Troponin 5 2HR Delta -1.79 ABS# (0-10)
--- NOTE | 2024-08-08 17:55 | ECG_ITS ---
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
[2024-08-08 18:00] VITALS: BP 143/89; PULSE 63; O2SAT 92
--- NOTE | 2024-08-08 18:09 | ED_ITS ---
HPI - General Adult 2 General: Chief complaint: General Medical Stated complaint: muscles drawng up Time Seen by Provider: 08/08/24 18:01 History of Present Illness: 5-year-old man with history of coronary artery disease who presents emergency room with muscle cramps. He had an steroid injection in his right shoulder a few days ago and since then he has been having cramps in all of his muscles. He had some cramping just under his heart and he has a coronary history so his provider told him to go to the emergency room for evaluation. No current chest pain. No altered mental status. No cough. No shortness of breath. No abdominal pain. No nausea or vomiting. Related Data Home Medications ?Medication ?Instructions ?Recorded ?Confirmed aspirin 81 mg tablet,delayed 81 mg PO ONCE 07/08/19 release morphine 15 mg tablet,extended 15 mg PO Q8H PRN pain 0 08/07/24 release Previous Rx's ?Medication ?Instructions ?Recorded nitroglycerin 0.4 mg sublingual 0.4 mg sublingual Q5M PRN chest 07/19/21 tablet pain #30 tabs hydrocodone 10 mg-acetaminophen 1 tab PO .q4hrs PRN pa in 30 days 11/01/21 325 mg tablet #180 tabs amlodipine 10 mg tablet 10 mg PO DAILY #90 tabs 11/16 betamethasone valerate 0.1 % See Rx Instructions .Rout e 04/03/24 topical cream .COMPLEX #45 grams ketoconazole 2 % topical cream 1 applic topical BID 20 days #60 05/27/24 grams telmisartan 40 mg tablet (Micardis) 40 mg PO DAILY #90 tabs 06/27/24 carvedilol 12.5 mg tablet 12.5 mg PO BID #60 tabs 07/27 08/20 cyclobenzaprine 10 mg tablet 10 mg PO Q8H PRN muscle s pasm #20 08/08/24 tabs Allergies Allergy/AdvReac Type Severity Reaction Status Date / Time gabapentin Allergy nausea Verified 08/07/24 10:48 meloxicam (From Mobic) Allergy Unknown Verified 08/07/24 10:48 poison pedro extract Allergy Unknown Verified 08/07/24 10:48 Review of Systems 2 Narrative: Constitutional symptoms: Negative except as documented in HPI. Skin symptoms: Negative except as documented in HPI. Eye symptoms: Negative except as documented in HPI. ENMT symptoms: Negative except as documented in HPI. Respiratory symptoms: Negative except as documented in HPI. Cardiovascular symptoms: Negative except as documented in HPI. Gastrointestinal symptoms: Negative except as documented in HPI. Genitourinary symptoms: Negative except as documented in HPI. Musculoskeletal symptoms: Negative except as documented in HPI. Neurologic symptoms: Negative except as documented in HPI. Psychiatric symptoms: Negative except as documented in HPI. Endocrine symptoms: Negative except as documented in HPI. 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 Skin: Warm, dry. Head: Normocephalic, atraumatic. Neck: Supple, trachea midline. Eye: Extraocular movements are intact. Ears, nose, mouth and throat: mucosa moist. Cardiovascular: Regular, Normal peripheral perfusion. Respiratory: Lungs are clear to auscultation, respirations are non-labored, breath sounds are equal, Symmetrical chest wall expansion. Gastrointestinal: Soft, Nontender, Non distended Musculoskeletal: Normal ROM, no deformity. Neurological: Alert and oriented, No focal neurological deficit observed. Psychiatric: Cooperative, appropriate mood & affect. Course 2 Vital Signs: Vital signs: Vital Signs Temperature 98.2 F 08/08/24 13:51 Pulse Rate 66 08/08/24 18:29 Respiratory Rate 20 H 08/08/24 13:51 Blood Pressure 147/97 08/08/24 18:29 Pulse Oximetry 97 08/08/24 18:29 Oxygen Delivery Me thod Room Air 08/08/24 18:15 MDM - General Adult Medical Decision Making Differential diagnosis for patient with chest pain includes but is not limited to and based on the above HPI, review of systems and physical exam: Pneumonia. unstable angina. angina. Acute coronary syndrome / CT. Pulmonary embolism. Costochondritis / musculoskeletal. Pleurisy. Pericarditis. Esophageal spasm. Pancreatis. Cholecystitis. Orders placed to evaluate differential diagnosis based on the above differential, HPI and physical exam EKG: Time 1755. Rate 62. Normal sinus rhythm, No ST-T changes, no ectopy, normal LA & QRS intervals, This was reviewed and interpreted by myself the ER physician at 1800. Lab Review: Laboratory results were reviewed and interpreted by myself the emergency room physician. Lab work is unremarkable. Mild leukocytosis and a mild elevation in BUN which would be expected with steroid. No renal failure otherwise creatinine is 0.6. Serial troponins are negative. I reviewed the patient's medical record. Assessment and plan: Noncardiac chest pain Muscle spasms - Discharged home - Discussed plan with patient. Answered any questions. - Evaluation and treatment of this problem were appropriate in the emergency setting. Lab Data 08/08/24 14:54 08/08/24 14:54 Laboratory Results WBC 13.66 10^3/uL (3.29-11.43) H 08/08/24 14:54 RBC 5.62 10^6/uL (3.85-5.65) 08/08/24 14:54 Hgb 15.60 g/dL (11.27-16.99) 08/08/24 14:54 Hct 45.7 % (37-53) 08/08/24 14:54 MCV 81.3 fl (82-101) L 08/08/24 14:54 MCH 27.8 pg (27-33) 08/08/24 14:54 MCHC 34.1 g/dL (30-55) 08/08/24 14:54 RDW 12.6 % (12.1-15.1) 08/08/24 14:54 Plt Count 247 10^3/cmm (157-399) 08/08/24 14:54 MPV 8.4 fL (7.4-10.4) 08/08/24 14:54 Neut % (Auto) 69.0 % 08/08/24 14:54 Lymph % (Auto) 21.3 % 08/08/24 14:54 Grant % (Auto) 7.8 % 08/08/24 14:54 Eos % (Auto) 1.0 % 08/08/24 14:54 Baso % (Auto) 0.4 % 08/08/24 14:54 Neut # (Auto) 9.43 10^3/uL (1.8-7.7) H 08/08/24 14:54 Lymph # (Auto) 2.9 10^3/uL (0.8-4.8) 08/08/24 14:54 Grant # (Auto) 1.1 10^3/uL (0.2-0.9) H 08/08/24 14:54 Eos # (Auto) 0.1 10^3/uL (0.0-0.8) 08/08/24 14:54 Baso # (Auto) 0.1 10^3/uL (0.0-0.1) 08/08/24 14:54 Nucleated RBC % (auto) 0 % 08/08/24 14:54 Nucleated RBCs # 0.0 /100WBC 08/08/24 14:54 Sodium 133 mmol/L (136-145) L 08/08/24 14:54 Potassium 4.7 mmol/L (3.5-5.1) 08/08/24 14:54 Chloride 96 mmol/L (98-107) L 08/08/24 14:54 Carbon Dioxide 24 mmol/L (22-29) 08/08/24 14:54 Anion Gap 17.7 (5-19) 08/08/24 14:54 BUN 26 mg/dL (8-23) H 08/08/24 14:54 Creatinine 0.6 mg/dL (0.7-1.2) L 08/08/24 14:54 GFR Calculation 137.4 mL/min (90-130) H 08/08/24 14:54 Glucose 108 mg/dL (65-115) 08/08/24 14:54 Calculated Osmolality 281 mOsm/kg (285-295) L 08/08/24 14:54 Calcium 9.5 mg/dL (8.5-10.5) 08/08/24 14:54 Total Bilirubin 0.3 mg/dL (0.15-1.2) 08/08/24 14:54 AST 22 U/L (0-40) 08/08/24 14:54 ALT 32 U/L (0-41) 08/08/24 14:54 Alkaline Phosphatase 60 U/L (40-130) 08/08/24 14:54 Troponin T Baseline 11 ng/L (0-15) 08/08/24 14:54 Troponin T 120 Minute 9.21 ng/L (0-15) 08/08/24 16:52 Delta Troponin T -1.79 ABS# (0-10) L 08/08/24 16:52 Total Protein 7.5 g/dL (6.6-8.7) 08/08/24 14:54 Albumin 4.4 g/dL (3.5-5.2) 08/08/24 14:54 Globulin 3.1 g/dL (1.3-4.6) 08/08/24 14:54 No radiology studies performed this visit Discharge Plan Discharge Patient Disposition: Home Clinical Impression: Muscle spasm, Non-cardiac chest pain Condition: Stable Prescriptions: New cyclobenzaprine 10 mg tablet 10 mg PO Q8H PRN (Reason: muscle spasm) Qty: 20 0RF No Action nitroglycerin 0.4 mg tablet, sublingual 0.4 mg SUBLINGUAL Q5M PRN (Reason: chest pain) Qty: 30 5RF aspirin 81 mg tablet,delayed release (DR/EC) 81 mg PO ONCE hydrocodone-acetaminophen 10-325 mg tablet 1 tab PO .q4hrs PRN (Reason: pain) 30 Days Qty: 180 0RF Rx Instructions: must be seen for further refills ketoconazole 2 % cream 1 applic topical BID 20 Days Qty: 60 0RF morphine 15 mg tablet extended release 15 mg PO Q8H PRN (Reason: pain) Rx Instructions: fill on or after 08/19/21 carvedilol 12.5 mg tablet 12.5 mg PO BID Qty: 60 5RF Rx Instructions: must administer with a meal/food amlodipine 10 mg tablet 10 mg PO DAILY Qty: 90 1RF betamethasone valerate 0.1 % cream See Rx Instructions .ROUTE .COMPLEX Qty: 45 0RF Dose Instruction: APPLY CREAM TOPICALLY TO AFFECTED AREA TWICE DAILY NEEDED FOR ITCHING Rx Instructions: APPLY CREAM TOPICALLY TO AFFECTED AREA TWICE DAILY NEEDED FOR ITCHING telmisartan [Micardis] 40 mg tablet 40 mg PO DAILY Qty: 90 1RF Discharge Orders: Discharge ED (Routine); Ordered 08/08/24 Ordered By: Belinda Cardenas Referrals: Linda San MD [Primary Care Provider] - Discharge Diet: Usual diet Discharge Activity: Increase activity as tolerated Patient Instructions: Muscle Spasm (ED), Noncardiac Chest Pain (ED), Opioid Safety, Pain Management Activity Restrictions/Additional Instructions: Thank you for choosing [facility] for your healthcare needs today. Please realize this is an emergency room and that we are providing you with a medical screening exam and this may not be complete and all inclusive of all the testing and or work up that you may need to determine your ailment or severity of your illness. You have been screened and evaluated and felt safe for discharge. Health conditions do change or evolve sometimes and as such it is important that you follow up with your Primary Doctor to be re checked, 3-5 days is a general good time frame for follow up. You are always welcome to return to the ED for re assessment if your symptoms are worsening or you have new concerns Print Language: Belgian Coding Level of Care Code ED Shotgun Shell Assembly Machine Operator for Chris Ryan
[2024-08-08 18:15] VITALS: BP 147/97; PULSE 69; O2SAT 92
[2024-08-08 18:29] VITALS: BP 147/97; PULSE 66; O2SAT 97
== END 2024-08-08 18:30 | disposition home or self-care (01) ==
PROVIDERS: Emergency Medicine; Emergency Provider Emergency Medicine; PCP Family Medicine
DX: M62.838 Other muscle spasm (principal); R07.89 Other chest pain; Z79.82 Long term (current) use of aspirin; F17.290 Nicotine dependence, other tobacco product, uncomplicated
CPT/HCPCS: 36415; 80053; 84484; 85025; 93005; 99284

== ENCOUNTER 2024-09-16 08:34 | Outpatient (CLI) | payer OTHER, SELFPAY ==
[2024-09-16 08:38] VITALS: BMI 32.5
--- NOTE | 2024-09-16 08:58 | ECG_ITS ---
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 Interpretive Statements Lung unchanged pre/post procedure; Intraprocedure shortess of breath; Symptoms resoled by discharge PROCEDURE: At the baseline, the EKG revealed sinus bradycardia within normal ST Ts.. The baseline heart was 55 bpm with a blood pressue of 131/90 mm of Hg Lexiscan was infused over a period of 20 seconds. A total of 0.4 milligrams of Lexiscan was infused. The stress phase was continued for a total of 5 minutes. Heart rate at the end of the stress phase was 70 bpm with a blood pressure 170/92 mm of Hg. The EKG at the peak infusion revealed no significant changes. Sestamibi was injected 20 seconds after the Lexiscan infusion. Heart rate at the end of the recovery phase was 83 bpm with a blood pressure of 145/83 mm of Hg. CONCLUSION: 1. No significant EKG changes with the LexiScan infusion 2. No LexiScan induced chest pain or cardiac arrhythmia 3. Normal blood pressure and heart rate response 4. Sestamibi/sestamibi perfusion scan pending; see separate report. Electronically Signed On 09-20-2024 08:45:13 CDT by Reyna Cisneros M.D. [email or web address]
--- NOTE | 2024-09-16 08:58 | NMCV_ITS ---
NM nati perf SPECT r/s* [id number] Johnie Delgado Age: 59 Gender: M : 1965 Exam Date: 09/16/2024 08:58 Ordering Phys: Reyna Cisneros MD ([email or web address]) Technologist: SOO Dang Exam Location: [facility] Indications: cp STRESS TEST Please [facility] IMAGE PROTOCOL Rest/Stress 1 Lexiscan Day Radiopharmaceutical Dose (mCi) Administration Site Administered by Rest: Tc-99m 11 IV SOO Dang Stress:Tc-99m 32.9 IV SOO Dang Rest: 09/16/2024 60 Discovery 630 Stress: 09/16/2024 30 Discovery 630 0.4mg Lexiscan. Images obtained in supine and prone position. SPECT RESULTS Technical Quality: Good Raw Data Analysis: Image Corrections: Summed Stress Score: 4 Summed Rest Score: 0 Summed Difference Score: 4 PERFUSION FINDINGS There is a medium sized area of reduced radiotracer uptake in the inferolateral wall. This resolves on prone imaging. Consistent with attenuation artifact FUNCTIONAL RESULTS (calculated via Gated SPECT) Stress Image LV EF (%): 65 Stress EDV (mL):133 TID: 1.24 Stress ESV (mL):46 FUNCTIONAL FINDINGS: There is normal left ventricular systolic function. IMPRESSIONS 1. Attenuation artifact seen in the inferolateral wall. Defect resolves on prone imaging. Less likely to be medium sized area of ischemia. Clinical correlation is required. 2. LV systolic function is normal 3. TID ratio is elevated Gene Martinez MD (Electronically Signed) Final Date: 19 September 2024 10:21 S
[2024-09-16] MEDS: regadenoson 0.4 Mg/5 ml Syringe IVP (10:28)
[2024-09-16 10:39] VITALS: BP 145/83; PULSE 65
--- NOTE | 2024-09-16 14:15 | USCV_ITS ---
Johnie Delgado Age: 59 Gender: M : 1965 Exam Date: 09/16/2024 09:00 Ordering Phys: Reyna Cisneros MD ([email or web address]) Technologist: Exam Location: [facility] [place] Indication: cad BP: 150 / 90 HR: 72 Rhythm: Sinus Technical Quality: Adequate MEASUREMENTS (Male / Female) Normal Values 2D ECHO LV Diastolic Diameter PLAX 4.1 cm 4.2 - 5.9 / 3.9 - 5.3 cm IVS Diastolic Thickness 1.1 cm 0.6 - 1.0 / 0.6 - 0.9 cm IVS Systolic Thickness 1.9 cm LVPW Diastolic Thickness 1.3 cm 0.6 - 1.0 / 0.6 - 0.9 cm LVPW Systolic Thickness 1.8 cm LVOT Diameter 2.0 cm LV Ejection Fraction 2D Teich 66.1 % LV Ejection Fraction MOD 4C 54.7 % LV Ejection Fraction MOD 2C 56.0 % LV Ejection Fraction 2C AL 56.4 % LA Diameter 4.2 cm RA Systolic Volume 4C AL 54.0 ml RA Systolic Volume 4C MOD 49.8 ml Aorta at Sinotubular Diameter 3.2 cm M-MODE LA Ao Ratio MM 1.0 AV Cusp Separation MM 2.4 cm DOPPLER AV Peak Velocity 138.3 cm/s LVOT Peak Velocity 85.0 cm/s AV Area Cont Eq vti 2.8 cm squared AV Area Cont Eq pk 2.0 cm squared MV Area PHT 4.8 cm squared Mitral E to A Ratio 1.3 TV Peak Velocity 217.0 cm/s TR Peak Velocity 260.0 cm/s TR Peak Gradient 27.0 mmHg TV Peak E Velocity 105.0 cm/s PV Peak Velocity 88.0 cm/s FINDINGS Left Ventricle Normal left ventricular size and systolic function, EF 56%.mild left ventricular hypertrophy. Grade II/IV diastolic dysfunction, moderately elevated filling pressures. No regional wall motion abnormalities. Right Ventricle The right ventricle is normal in size and function. Right Atrium The right atrium is normal in size. Left Atrium Mildly increased left atrial size. Mitral Valve Trace to mild mitral valve regurgitation. Aortic Valve Thickened aortic valve. Tricuspid Valve Trace tricuspid valve regurgitation. Pulmonic Valve No gross abnormalities noted Pericardium Normal pericardium without effusion. Aorta Normal ascending aorta dimension. IVC Inferior vena cava not visualized. CONCLUSIONS Normal left ventricular size and systolic function, EF 56%.mild left ventricular hypertrophy. Grade II/IV diastolic dysfunction, moderately elevated filling pressures. No regional wall motion abnormalities. Mildly increased left atrial size. Trace to mild mitral valve regurgitation. Thickened aortic valve. Trace tricuspid valve regurgitation. Estimated pulmonary artery peak systolic pressure 30 mmHg There is no pericardial effusion. There are no intracardiac masses. Compared to the study from 08/01/2018, there may not be a significant change Dr Reyna Cisneros MD FACC (Electronically Signed) Final Date: 16 September 2024 20:45 S
== END 2024-09-16 08:35 | disposition home or self-care (01) ==
PROVIDERS: PCP Family Medicine; Visit Provider Internal Medicine Cardiovascular Disease
DX: R06.09 Other forms of dyspnea (principal); R07.9 Chest pain, unspecified; I51.7 Cardiomegaly; R93.1 Abnormal findings on diagnostic imaging of heart and coronary circulation; I35.8 Other nonrheumatic aortic valve disorders
CPT/HCPCS: 36415; 78452; 93017; 93306; 96374; 96375; A9500; J2785

== ENCOUNTER 2024-10-15 06:56 | Outpatient (CLI) | payer OTHER, SELFPAY ==
[2024-10-15] VITALS (24 sets, daily range): BP systolic 116–164; BP diastolic 69–95; PULSE 46–78; RESP 13–22; TEMP 36.9–37.1; O2SAT 98–99; BMI 32.5
[2024-10-15 07:30] LABS: Basophils # 0.1 10^3/uL (0.0-0.1); Basophils % 0.7 %; Eosinophils # 0.4 10^3/uL (0.0-0.8); Eosinophils % 5.3 %; Mean Corpuscular HGB Conc 33.5 g/dL (30-55); Mean Corpuscular Hemoglobin 27.9 pg (27-33); Mean Corpuscular Volume 83.3 fl (82-101); Mean Platelet Volume 8.9 fL (7.4-10.4); Monocytes # 1.1 10^3/uL (0.2-0.9); Monocytes % 15.3 %; Neutrophils # 3.76 10^3/uL (1.8-7.7); Neutrophils % 51.3 %; Nucleated Red Blood Cells % 0 %; Platelet Count 269 10^3/cmm (157-399); Red Cell Distribution Width 12.7 % (12.1-15.1); White Blood Count 7.33 10^3/uL (3.29-11.43)
--- NOTE | 2024-10-15 07:30 | XACV_ITS ---
Exam Room: 2 Ht: 173 cm Wt: 97 kg BSA: 2.19 m2 Gender: Male : 1965 Any Known Allergies: Other Exam Priority: Routine Procedure(s): Procedure Description: Diagnostic procedure Procedure Description: PCI procedure Procedure Description: Drug Eluting Coronary Stent Procedure Description: PTCA Procedure Description: Miscellaneous Procedure Description: ACT Procedure Description: Coronary Angiography Blayne CRUZ; Diagnostic Cath Status: Elective Diagnostic Findings * Left Main has no disease. * Left Anterior Descending has no disease.Luminal irregularities. * Proximal Right Coronary Artery: mild 40% in stent restenosis, LUCY: 3 flow. * Proximal Circumflex: severe 90% stenosis, LUCY: 3 flow.It is the culprit lesion, patent previously placed OM stent with minimal instent restenosis. * Coronary angiography shows right dominance. PCI Indication: New Onset Angina <= 2 months Interventional Findings * Proximal Circumflex: 90% stenosis treated with a AB TREK 3.00X12 RX BALLOON, JOSE ELIAS Diaz DILIA 3.0X15 PHANI, and JOSE ELIAS TRIVEDI EUPHORA RX [id number] BALLOON. 0% residual stenosis, LUCY: 3 flow. Conclusions 1. There is severe coronary artery disease with two vessel disease. 2. Proximal Circumflex was treated with a Balloon, Drug Eluting Stent, and Balloon. Recommendations * 1-Return to inpatient for close monitoring and routine cath care 2-Risk factor modification for secondary prevention 3-Statin and aspirin 81 mg life-long, if tolerated 4-Patient was pre-loaded with 600 mg of Plavix, continue Plavix 75mg p.o. daily for at least one year. We will assess at the end of one year again to continue if further or not 5-Continue optimal medical management 6-Follow up with Dr. Chinchilla in four weeks and your primary care in 10 days. Diagnostic RX Recommendation: PCI w/o planned CABG Pressures Phase:Rest AO : 112 / 68 ( 85 ) @ 2:18:00 PM 117 / 49 ( 71 ) @ 2:32:00 PM Clinical Evaluation EBL: 5mL-10mL Procedural Details Procedure Consent Obtained. Admit Source: Out Patient. Pre-Procedure Time Out. Identified patient by full name and date of as verbalized by the patient/guarantor. Does the consent match the physician's order: Yes. Accurate & Complete Informed Consent: Yes. Inpatient/Outpatient History & Physical on Chart: Yes. If H&P is completed, is and addenduem needed: No; If yes, is the addendum complete: N/A. Visualize and Verify Site with Patient/Guarantor: N/A. Relevant Radiology Images available: Yes. The risks, benefits, and alternatives of sedation and/or procedure were discussed by physician. The patient agrees to continue. Procedure started. [facility] Clinical Fraility Score: 3: Managing Well. Shipping Weigher Indications: Worsening Angina. Chest Pain Symptom Assessment: Typical Angina Symptoms. Correct patient, site and procedure confirmed by cath team. Current diagnosis: Chest Pain, Abnormal stress test. PERRLA. Strong, equal hand modular home crew member bilaterally. Lungs clear x 5 lobes. IV Site on Arrival: 20 gauge in the left hand. IV Fluids: 0.9% NaCl at KVO. 0 mL infused prior to track laborer. Pre Procedural Pulses: bilateral radial was 3+. Pre Procedural Pulses: bilateral posterior tibial was Doppled. Pre Procedural Pulses: bilateral dorsalis pedis was Doppled. Oxygen started at 2liters/min via nasal canula. right radial was prepped with chloroprep then draped in the usual sterile fashion. right groin was prepped with chloroprep then draped in the usual sterile fashion. Physician notified. Baseline sample Acquired. HR: 65 BPM. Physician arrived. Physician scrubbed in. Immediate Pre-Procedure Time Out. Correct Patient: Yes; Correct Procedure: Yes; Correct Site: Yes; Correct Patient Position: Yes; Correct Supplies: Yes; Dried Flammable Prep: Yes; Blood Products Available: No;. Lidocaine 1% infiltrated to the right radial. Arterial access obtained. A 5 mozambican TIG catheter in over wire. Multiple views taken of left coronary artery. Catheter redirected to the RCA. Multiple views taken of right coronary artery. Catheter removed over the exchange wire. 6 mozambican XB 3.5 guide catheter was inserted over the wire. Add inventory: Co-maritime pilot, endoflator. Angiography performed. Runthrough guidewire was advanced through the guide catheter to lesion in the prox Circ. Guidewire advanced across lesion and parked in OM. Balloon inserted to lesion in the prox Circ. Inflation number : 1 A AB TREK 3.00X12 RX BALLOON was prepped and advanced across the Prox CX , then inflated to 12 ELEONORA for 0:11 seconds. Balloon out. Results checked. Stent inserted to lesion in the prox Circ. Inflation Number : 2 A MDT R DILIA 3.0X15 PHANI -Lot Number [id number] EXP 01-08-2027 was prepped and advanced across the Prox CX. The stent was deployed at 12 ELEONORA for 0:12 seconds. Stent balloon and wire out. Balloon inserted to lesion in the prox Circ. Inflation number : 3 A MDT FAROOQ EUPHORA RX [id number] BALLOON was prepped and advanced across the Prox CX , then inflated to 14 ELEONORA for 0:10 seconds. Inflation number: 4 The MDT NC EUPHORA RX [id number] BALLOON was reinflated across the Prox CX, to 14 ELEONORA for 0:11 seconds. Balloon out. Results checked. Wire out. ACT drawn. Results 279 seconds. Therapeutic limits - pre-heparin administration 90-150 seconds and monitoring heparin during a vascular procedure >250 seconds. Guide catheter out. Physician scrubbed out. Post Procedure: Pulses reassessed and unchanged. PERRLA. Strong, equal hand modular home crew member bilaterally. No VTE prophylaxis required. Medication's Wasted: Lidocaine 1% = 18 mL. Medication's Wasted: Nitro = 49.8 mg. Medication's Wasted: Heparin = 1000 unit. Total IV fluids: 30 mL. Post-op diagnosis: Severe proximal circumflex stenosis , status post PCI placement of 1 PHANI. Moderate RCA stenosis. Complications: None. Estimated blood loss: 5mL-10mL. Responsiveness - Normal response to verbal stimuli; alert and oriented, PERRLA. Airway - Unaffected, no intervention required; spontaneous ventilation. Circulation: W/N/L, pulses unchanged. Nausea/Vomiting: No. A TR Band was successful obtaining hemostatsis at the Right Radial artery insertion site. Procedure completed. Patient transferred by wheelchair to 1st floor. Vital chart was stopped. Access Site Site: Right Radial artery Sheath Size: 6 Fr Hemostasis Method: TR Band Hemostasis Success: Successful Procedure Medications Start: 1:10 PM Stop: 1:10 PM Medication: Versed Amount: 1 mg Route: I.V. Start: 1:10 PM Stop: 1:10 PM Medication: Fentanyl Amount: 50 mcg Route: I.V. Start: 1:10 PM Stop: 1:10 PM Medication: Diphendryamine Amount: 25 mg Route: I.V. Start: 1:13 PM Stop: 1:13 PM Medication: Fentanyl Amount: 25 mcg Route: I.V. Start: 1:15 PM Stop: 1:15 PM Medication: Nitrogylcerin Amount: 200 mcg Route: I.A. Start: 1:17 PM Stop: 1:17 PM Medication: Heparin Amount: 5000 units Route: I.V. Start: 1:25 PM Stop: 1:25 PM Medication: Heparin Amount: 4000 units Route: I.V. Start: 1:25 PM Stop: 1:25 PM Medication: Plavix Amount: 600 mg Route: P.O. Start: 1:27 PM Stop: 1:27 PM Medication: Versed Amount: 1 mg Route: I.V. Start: 1:29 PM Stop: 1:29 PM Medication: Fentanyl Amount: 25 mcg Route: I.V. Start: 1:31 PM Stop: 1:31 PM Medication: Versed Amount: 1 mg Route: I.V. Start: 1:37 PM Stop: 1:37 PM Medication: Aggrastat 12.5 mg/250 mL Amount: 49 ml Route: I.V. bolus Start: 1:45 PM Stop: 1:45 PM Medication: Aggrastat 12.5 mg/250 mL Amount: 17.6 ml/hr Route: I.VAbdirizak felix I, the attending physician, have reviewed and verified all procedure medications. Yes, all medications given per verbal order History/Risk Factors Hypertension: Yes Dyslipidemia: Yes Peripheral Arterial Disease (PAD): No Myocardial Infarction (FL): No Obesity: No Renal Disease: No Tobacco Use: Current/Recent(w/in 1 year) Prior Interventions PCI: Yes CABG: No Valve Surgery: No Date of PCI: 10/24/2016 Report Signatures Finalized by Heber Chinchilla MD on 10/28/2024 12:46 AM
[2024-10-15] MEDS: aspirin 325 mg Tablet PO (07:39)
[2024-10-15] MEDS: diphenhydrAMINE 50 mg Capsule PO (07:39)
[2024-10-15 07:56] LABS: Anion Gap 16.3 (5-19); Blood Urea Nitrogen 15 mg/dL (8-23); Calcium 9.2 mg/dL (8.5-10.5); Carbon Dioxide 26 mmol/L (22-29); Chloride 105 mmol/L (98-107); Creatinine Clr Calc Pharmacy 177.4836; Glomerular Filtration Rate 169.6 mL/min (90-130); Glucose 101 mg/dL (65-115); Osmolality Calculated 297 mOsm/kg (285-295); Potassium 4.3 mmol/L (3.5-5.1); Sodium 143 mmol/L (136-145)
--- NOTE | 2024-10-15 08:38 | P.HPUD_ITS ---
Surgery/Procedure H&P Update DATE OF PROCEDURE: October 15, 2024 DATE H&P PERFORMED: 10/01/24 H&P UPDATE INFORMATION: I have reviewed H&P completed within last 30 days, I have examined patient prior to procedure and No changes to prior documentation PREOP DIAGNOSIS: ASHD PRIMARY INDICATION FOR PROCEDURE: Chest pain, multiple PCI's in the past, abnormal Myocardial perfusion imaging PLANNED PROCEDURE: Operation Date: 10/15/24 08:30 Proposed Procedures p Cardiac Catheterization - [facility] w/wo LV & Coros(Left) - Reyna Cisneros MD PATIENT REASSESSED PRIOR TO SEDATION, WITH NO CHANGE NOTED: Yes PHYSICAL EXAM: alert, oriented x 3 and clear to auscultation bilaterally AIRWAY EVAL/ANESTHESIA PLAN: normal airway, see other exam findings, ASA III, Monitored Anesthesia, Local Anesthesia, Risks, benefits & alternatives of sedation and/or procedure discussed and Patient agrees to continue as planned
[2024-10-15] MEDS: HYDROcodone-acetaminophen 10-325 mg Tablet 1 TAB PO ×3 (09:46→22:22)
--- NOTE | 2024-10-15 13:01 | P.HPUD_ITS ---
Surgery/Procedure H&P Update DATE OF PROCEDURE: October 15, 2024 DATE H&P PERFORMED: 10/01/24 CHANGES TO PREVIOUS DOCUMENTATION: Abnormal stress stress/chest pain/history of multiple PCI PREOP DIAGNOSIS: ASHD/abnormal stress PRIMARY INDICATION FOR PROCEDURE: 59-year-old male past medical history significant for hypertension hyperlipidemia coronary artery disease history of prior stents underwent stress test for worsening of chest pain turned out to be abnormal it is the reason he has been scheduled for left heart catheterization today. Patient has been explained all risk-benefit and alternative for the procedure he understand 2% risk of stroke major bleed, he understands 6 point risk of minor major bleeding hematoma infection contrast induced nephropathy urgent emergent bypass or vascular surgery. He would like to proceed with it PLANNED PROCEDURE: Operation Date: 10/15/24 08:30 Proposed Procedures p Cardiac Catheterization - [facility] w/wo LV & Coros(Left) - Reyna Cisneros MD PATIENT REASSESSED PRIOR TO SEDATION, WITH NO CHANGE NOTED: Yes PHYSICAL EXAM: alert, oriented x 3, clear to auscultation bilaterally, regular rate & rhythm and operative site marked AIRWAY EVAL/ANESTHESIA PLAN: ASA II, Risks, benefits & alternatives of sedation and/or procedure discussed and Patient agrees to continue as planned
--- NOTE | 2024-10-15 13:53 | PM.PROC ---
Procedure Note: Date of procedure: 10/15/24 Pre-procedure diagnosis: Abnormal stress test/chest pain Post-procedure diagnosis: same Procedure: Left heart catheterization was performed for abnormal stress test in chest pain in a patient with history of prior PCI #1 left main has luminal irregularity without significant stenosis #2 LAD has luminal irregularity without significant stenosis #3 LCx has proximal high-grade 90 to 95% stenosis it was the culprit vessel #4 RCA has luminal irregularity with patent previously placed stent with 40 to 50% in-stent restenosis in the proximal and mid region not appear to be significant LV gram was not performed PCI to proximal left circumflex with drug-eluting stent. Lesion with pre and postdilated with compliant and noncompliant balloon. Lesion was stented with 3.0 x 15 mm stent which was then postdilated with noncompliant balloon 3.5 x 8 at high atmosphere of 12 mmHg. Excellent angiographic result with LUCY-3 flow was achieved. Patient tolerated procedure well without any complication. Patient will be kept on Aggrastat since we are loading 600 mg with Plavix for 1 hour After 1 hour Aggrastat will be stopped infusion green Radial band as per protocol. Continue IV fluid 100 mL/h for next Continue aspirin statin 75 mg of Plavix and 81 mg of aspirin from tomorrow. Today patient was loaded with 600 mg of Plavix and 325 mg of aspirin. Follow-up with Dr. Cisneros as an outpatient. Coding Level of Care Code Acute Code for Chris Ryan
[2024-10-15] MEDS: sodium chloride 0.9% 1,000 ML 100 ML IV (14:00)
--- NOTE | 2024-10-15 14:05 | PC.NURSE ---
Received pt from lab nurse Pt denies any chest pain or discomfort when asked by nurse. Pt is alert,orientedx4.Family at bedside. Aggrastat drip to be run for 1 hr per lab nurse nurse Jayda. TR band intact on right wrist. no hematoma, bleeding or swelling, radial pulse palpable+3. Call light provided to pt. Educated pt on activity restrictions to right wrist and arm such as avoiding any lifting, bending or pushing or pulling on right hand. Informed pt to notify nurse if there is unusual pain,numbness or pressure to right wrist and arm. 1515 pm - Aggrastat drip stopped. TR band is dry and intact. no bleeding or hematoma.
[2024-10-15] MEDS: cholecalciferol (vitamin D3) 5,000 unit Tablet 5000 UNIT PO (22:22)
[2024-10-15] MEDS: losartan 50 mg Tablet 40 MG PO (22:22)
[2024-10-16 04:28] VITALS: BP 154/98; PULSE 68; RESP 12; TEMP 36.9; O2SAT 98
[2024-10-16 05:29] VITALS: PULSE 62
[2024-10-16] MEDS: HYDROcodone-acetaminophen 10-325 mg Tablet 1 TAB PO ×2 (05:41→09:31)
[2024-10-16 06:33] LABS: Basophils % 0.5 %; Eosinophils # 0.5 10^3/uL (0.0-0.8); Eosinophils % 6.1 %; Hematocrit 40.2 % (37-53); Lymphocytes # 1.7 10^3/uL (0.8-4.8); Mean Corpuscular HGB Conc 32.6 g/dL (30-55); Mean Corpuscular Hemoglobin 27.8 pg (27-33); Mean Corpuscular Volume 85.2 fl (82-101); Mean Platelet Volume 9.1 fL (7.4-10.4); Neutrophils # 4.42 10^3/uL (1.8-7.7); Neutrophils % 58.1 %; Nucleated Red Blood Cells % 0 %; Platelet Count 257 10^3/cmm (157-399); Red Blood Count 4.72 10^6/uL (3.85-5.65); Red Cell Distribution Width 12.7 % (12.1-15.1)
[2024-10-16 07:00] LABS: Blood Urea Nitrogen 12 mg/dL (8-23); Carbon Dioxide 23 mmol/L (22-29); Chloride 105 mmol/L (98-107); Glucose 115 mg/dL (65-115); Osmolality Calculated 287 mOsm/kg (285-295); Sodium 138 mmol/L (136-145)
[2024-10-16 07:31] VITALS: BP 133/82; PULSE 57; RESP 16; TEMP 36.5; O2SAT 98
[2024-10-16] MEDS: clopidogrel 75 mg Tablet PO (08:21)
[2024-10-16] MEDS: cholecalciferol (vitamin D3) 5,000 unit Tablet 5000 UNIT PO (08:21)
[2024-10-16] MEDS: aspirin 81 mg EC Tablet PO (08:21)
--- NOTE | 2024-10-16 08:59 | P.PN_ITS ---
Subjective 2 Subjective: This patient under cardiac catheterization yesterday and was found to have the following #1 left main has luminal irregularity without significant stenosis #2 LAD has luminal irregularity without significant stenosis #3 LCx has proximal high-grade 90 to 95% stenosis it was the culprit vessel #4 RCA has luminal irregularity with patent previously placed stent with 40 to 50% in-stent restenosis in the proximal and mid region not appear to be significant he underwent PCI of the circumflex artery lesion. He had an uneventful postprocedure course. Currently remaining stable with no chest pain or any shortness of breath. Medications: Medication Review Details: Current Medications Acetaminophen (Acetaminophen 325 Mg Tablet) 650 mg PO Q6H PRN PRN Reason: MILD PAIN Hydrocodone Bitart/Acetaminophen (Hydrocodone-Acetaminophen 10-325 Mg Tablet) 1 tab PO Q4H PRN PRN Reason: MODERATE PAIN Last Admin: 10/16/24 05:41 Dose: 1 tab Al Hydrox/Mg Hydrox/Simethicone (Wnin-Lwv-Facqbabwz-Get 30 Ml Udc) 30 ml PO Q15M PRN PRN Reason: INDIGESTION Aspirin (Aspirin 81 Mg Ec Tablet) 81 mg PO DAILY [facility] Last Admin: 10/16/24 08:21 Dose: 81 mg Atropine Sulfate (Atropine 1 Mg/Ml Sdv 1 Ml) 0.5 mg IVP PRN PRN PRN Reason: Symptomatic bradycardia Clopidogrel Bisulfate (Clopidogrel 75 Mg Tablet) 75 mg PO DAILY [facility] Last Admin: 10/16/24 08:21 Dose: 75 mg Fentanyl (Fentanyl 50 Mcg/Ml Inj 2ml) 50 mcg IVP PRN PRN PRN Reason: Prior to sheath removal Sodium Chloride (Sodium Chloride 0.9%) 1,000 mls @ 100 mls/hr IV .Q10H [facility] Last Infusion: 10/16/24 01:03 Dose: Infused Magnesium Hydroxide (Magnesium Hydroxide 30 Ml Udc) 30 ml PO DAILY PRN PRN Reason: CONSTIPATION Naloxone HCl (Naloxone 0.4 Mg/Ml Sdv) 0.1 mg IVP Q2M PRN PRN Reason: RESPIRATORY RATE < 8/MIN Nitroglycerin (Nitroglycerin 0.4 Mg Sublingual Tablet) 0.4 mg SUBLINGUAL Q5M PRN PRN Reason: CHEST PAIN Temazepam (Temazepam 15 Mg Capsule) 15 mg PO BEDTIME PRN PRN Reason: INSOMNIA Vitamin D (Cholecalciferol (Vitamin D3) 5,000 Unit Tablet) 5,000 unit PO DAILY [facility] Last Admin: 10/16/24 08:21 Dose: 5,000 unit Vitals/I&O/Wt Last Vital Signs Temp 97.7 F 10/16/24 07:31 Pulse 57 L 10/16/24 07:31 Resp 16 10/16/24 07:31 BP 133/82 10/16/24 07:31 Pulse Ox 98 10/16/24 07:31 O2 Del Method Room Air 10/16/24 07:31 10/15/24 10/16/24 10/16/24 22:59 06:59 14:59 Intake Total 1000 / 1000 Balance 1000 / 1000 Weight last 48 hrs Weight 214 lb Physical Exam 2 Narrative: GENERAL: The patient is alert and oriented times three. Not in any acute distress. HEENT: No significant pallor, icterus or lymphadenopathy.Oral cavity: There are no mucous membrane lesions. NECK: Trachea appears to be central. No masses noted. No JVD or thyromegaly appreciated. RESPIRATORY: Chest is symmetrical. No intercostals muscle retraction or any accessory muscle activation. There is no chest wall tenderness. Breath sounds are heard bilaterally. No rales or rhonchi heard. No evidence of any consolidation. BREASTS: Deferred. HEART: The heart sounds are normal. No S3 or S4. No significant murmurs. No pericardial rub ABDOMEN: No vessel pulsations or distention. No tenderness. No organomegaly appreciated. Bowel sounds are normally heard. : Deferred. RECTAL: Deferred. LYMPHATIC: No lymphadenopathy noted in the neck. EXTREMITIES: No hematoma bleeding from the arterial puncture site MUSCULOSKELETAL: No acute joint deformities or swelling SKIN: There are no significant rashes or ecchymosis NEUROPSYCHIATRIC: The patient is alert and oriented x3. Appears to be in a good mood. No tremors or rigidity noted. Data 10/16/24 06:02 10/16/24 06:02 Other Labs: Laboratory Last Values WBC 7.60 10^3/uL (3.29-11.43) 10/16/24 06:02 RBC 4.72 10^6/uL (3.85-5.65) 10/16/24 06:02 Hgb 13.10 g/dL (11.27-16.99) 10/16/24 06:02 Hct 40.2 % (37-53) 10/16/24 06:02 MCV 85.2 fl (82-101) 10/16/24 06:02 MCH 27.8 pg (27-33) 10/16/24 06:02 MCHC 32.6 g/dL (30-55) 10/16/24 06:02 RDW 12.7 % (12.1-15.1) 10/16/24 06:02 Plt Count 257 10^3/cmm (157-399) 10/16/24 06:02 MPV 9.1 fL (7.4-10.4) 10/16/24 06:02 Neut % (Auto) 58.1 % 10/16/24 06:02 Lymph % (Auto) 22.0 % 10/16/24 06:02 [place] % (Auto) 13.0 % 10/16/24 06:02 Eos % (Auto) 6.1 % 10/16/24 06:02 Baso % (Auto) 0.5 % 10/16/24 06:02 Neut # (Auto) 4.42 10^3/uL (1.8-7.7) 10/16/24 06:02 Lymph # (Auto) 1.7 10^3/uL (0.8-4.8) 10/16/24 06:02 [place] # (Auto) 1.0 10^3/uL (0.2-0.9) H 10/16/24 06:02 Eos # (Auto) 0.5 10^3/uL (0.0-0.8) 10/16/24 06:02 Baso # (Auto) 0.0 10^3/uL (0.0-0.1) 10/16/24 06:02 Nucleated RBC % (auto) 0 % 10/16/24 06:02 Nucleated RBCs # 0.0 /100WBC 10/16/24 06:02 Sodium 138 mmol/L (136-145) 10/16/24 06:02 Potassium 4.0 mmol/L (3.5-5.1) 10/16/24 06:02 Chloride 105 mmol/L (98-107) 10/16/24 06:02 Carbon Dioxide 23 mmol/L (22-29) 10/16/24 06:02 Anion Gap 14.0 (5-19) 10/16/24 06:02 BUN 12 mg/dL (8-23) 10/16/24 06:02 Creatinine 0.7 mg/dL (0.7-1.2) 10/16/24 06:02 GFR Calculation 115.0 mL/min (90-130) 10/16/24 06:02 Glucose 115 mg/dL (65-115) 10/16/24 06:02 Calculated Osmolality 287 mOsm/kg (285-295) 10/16/24 06:02 Calcium 9.0 mg/dL (8.5-10.5) 10/16/24 06:02 A&P Assessment and plan (1) Atherosclerotic heart disease [place] coronary artery w/angina pectoris: Patient's status post PCI of the circumflex artery lesion. Currently remains stable with no symptoms. Qualifiers: [place] vs. transplanted heart: [place] heart Qualified Code(s): I25.119 - Atherosclerotic heart disease of [place] coronary artery with unspecified angina pectoris (2) Mixed hyperlipidemia: May continue on the current medications. (3) Essential hypertension: The blood pressure is fairly under control. (4) Anemia: Chronic and stable Qualifiers: Anemia type: unspecified type Qualified Code(s): D64.9 - Anemia, unspecified Plan The patient is being discharged home today. He may continue on the current medications including Plavix. He will be seen back in the clinic in a week by the nurse practitioner. In the event of a developing any recurrence of chest pain or any new symptoms, advised to come back to the hospital or contact our office. PDMP PDMP Reviewed: Not Reviewed Attestations 2 Medical Necessity Statement*: Discharge home today Coding Level of Care Code 22140 Diagnoses Atherosclerosis of [place] coronary artery of [place] heart with angina pectoris I25.119 [place] vs. transplanted heart: [place] heart Mixed hyperlipidemia E78.2 Essential hypertension I10 Anemia, unspecified type D64.9 Anemia type: unspecified type
--- NOTE | 2024-10-16 10:04 | PC.NURSE ---
Discharge Note Patient discharged to home via wheelchair accompanied by . Discharge instructions reviewed with patient and/or merchandiser retail representative. Mobile pharmacy medications and/or prescriptions provided. Belongings/home medications returned.
== END 2024-10-16 10:03 | disposition home or self-care (01) ==
LOC: CCL 07:12 → CSU 14:03
PROVIDERS: Internal Medicine Cardiovascular Disease; PCP Nurse Practitioner Family; Visit Provider Internal Medicine Cardiovascular Disease
DX: I25.119 Atherosclerotic heart disease of native coronary artery with unspecified angina pectoris (principal); E78.2 Mixed hyperlipidemia; I10 Essential (primary) hypertension; D64.9 Anemia, unspecified; Z79.82 Long term (current) use of aspirin; F17.290 Nicotine dependence, other tobacco product, uncomplicated
CPT/HCPCS: 36415; 80048; 85025; 85347; 93454; 96374; 96375; 96376; 99152; 99153; C1725; C1769; C1874; C1887; C1894; C9600; J1200; J1644; J2250; J2270; J3010; J3490; J7030; J9999; Q0163; Q9967

== ENCOUNTER → 2024-11-04 16:03 | Outpatient (BNVA) | payer OTHER, SELFPAY | PROVIDERS: PCP Nurse Practitioner Family; Visit Provider Nurse Practitioner Family | DX: R07.9 Chest pain, unspecified (principal); I25.10 Atherosclerotic heart disease of native coronary artery without angina pectoris; I10 Essential (primary) hypertension | CPT/HCPCS: 36415; 80048; 83880; 85025 ==

== ENCOUNTER → 2024-11-05 15:43 | Outpatient (BNVA) | payer OTHER, SELFPAY | PROVIDERS: PCP Nurse Practitioner Family; Visit Provider Student in an Organized Health Care Education/Training Program | DX: M17.11 Unilateral primary osteoarthritis, right knee (principal); M25.461 Effusion, right knee; M25.562 Pain in left knee; S83.8X1A Sprain of other specified parts of right knee, initial encounter; X50.9XXA Other and unspecified overexertion or strenuous movements or postures, initial encounter | CPT/HCPCS: 73560; 73565 ==

== ENCOUNTER → 2025-01-10 10:20 | Outpatient (BNVA) | payer OTHER, SELFPAY | PROVIDERS: PCP Nurse Practitioner Family; Visit Provider Nurse Practitioner Family | DX: E78.2 Mixed hyperlipidemia (principal); I25.10 Atherosclerotic heart disease of native coronary artery without angina pectoris; I10 Essential (primary) hypertension | CPT/HCPCS: 36415; 80048; 83880 ==

== ENCOUNTER 2025-01-17 09:15 | Outpatient (CLI) | payer OTHER, SELFPAY ==
--- NOTE | 2025-01-17 09:30 | USR_ITS ---
PROCEDURE INFORMATION: Exam: US Duplex Lower Extremity Veins, Bilateral Exam date and time: 01/17/2025 9:51 AM Age: 59 years old Clinical indication: Edema, localized; Lower extremity, bilateral; Additional info: Lower extremity edema TECHNIQUE: Imaging protocol: Real-time duplex ultrasound of the bilateral extremities with 2-D hernández scale, color Doppler flow and spectral waveform analysis including responses to compression and other maneuvers (when performed) with image documentation. Complete exam focused on the lower extremity veins. COMPARISON: CR XR foot RT min 3V* [id number] 11/16/2022 2:46 PM FINDINGS: Right deep veins: Unremarkable. The common femoral, femoral, proximal profunda femoral and popliteal veins are patent without thrombus. Normal Doppler waveforms. Normal compressibility and/or augmentation response. Left deep veins: Unremarkable. The common femoral, femoral, proximal profunda femoral and popliteal veins are patent without thrombus. Normal Doppler waveforms. Normal compressibility and/or augmentation response. Superficial veins: Greater saphenous veins at the saphenofemoral junctions are patent bilaterally without thrombus. Soft tissues: Unremarkable. US/CV lucinda dup insuar [facility] [id number] IMPRESSION: No evidence of deep vein thrombosis.
== END 2025-01-17 09:16 | disposition home or self-care (01) ==
LOC: RAD 09:15
PROVIDERS: PCP Nurse Practitioner Family; Visit Provider Nurse Practitioner Family
DX: R60.0 Localized edema (principal); E78.2 Mixed hyperlipidemia
CPT/HCPCS: 93970

== ENCOUNTER 2025-01-24 06:58 | Outpatient (CLI) | payer OTHER, SELFPAY ==
--- NOTE | 2025-01-24 07:15 | MR_ITS ---
WS: [id number] MRI RIGHT KNEE HISTORY: S83.8X1A - Sprain of other specified parts of right knee,... COMPARISON: 11/05/2024 radiograph. Anterior cruciate ligament: Intact. Posterior cruciate ligament: Intact. Medial collateral ligament: Increased T2 signal surrounding the mid to distal MCL with moderate thinning of the ligament. Partial tear suspected. Posterior lateral corner structures: Intact. Medial menisci: Anterior horn is normal. Abnormal contour and signal involving a large portion of the posterior horn greatest towards the meniscal root. There is loss of the normal articular surfaces with a tear at the free edge. Globular appearance of the meniscus towards the meniscal root with increased signal consistent with a complex tear. Lateral meniscus: Intact. Normal signal, size and shape. Extensor mechanism: Distal quadriceps tendon and patellar tendons are intact. Fluid and soft tissue: Small suprapatellar joint effusion. There is a small amount of edema surrounding the knee, greatest along the medial compartment. No Bernstein's cyst. Osseous and articular structures: Patellofemoral compartment: Mild narrowing of patellofemoral joint. Focal chondromalacia over the medial patellar facet. Patellar retinaculum is intact. Small amount of subchondral edema in the medial patellar facet. Medial compartment: Mild narrowing of the medial compartment. Diffuse mild chondromalacia. No fracture. Lateral compartment: Mild narrowing lateral compartment. Full-thickness cartilage defects along the weightbearing surface of the femoral condyle and the corresponding lateral tibial plateau articular surface. No underlying marrow edema. MR/MR knee RT wo con* [id number] IMPRESSION: 1. Complex tear posterior horn medial meniscus. Abnormal signal involves the s uperior and intra-articular surfaces at the free edge with extension into the m eniscal root. 2. Normal ACL. 3. Mild tricompartment joint space narrowing. 4. Moderate chondromalacia medial patellar facet. 5. Short segment full-thickness areas of chondromalacia along the weightbearin g surface of the lateral femoral condyle and the corresponding tibial plateau s urface. No underlying marrow edema. 6. Mild diffuse chondromalacia medial compartment. 7. Mild MCL sprain.
== END 2025-01-24 06:59 | disposition home or self-care (01) ==
LOC: RAD 06:58
PROVIDERS: PCP Nurse Practitioner Family; Visit Provider Student in an Organized Health Care Education/Training Program
DX: S83.8X1A Sprain of other specified parts of right knee, initial encounter (principal); M25.461 Effusion, right knee; X58.XXXA Exposure to other specified factors, initial encounter
CPT/HCPCS: 73721